=== PATIENT | female | born 1965 | race African-American/Black ===

== ENCOUNTER 2017-03-13 11:11 | Emergency (ER) | payer OTHER ==
[2017-03-13 11:25] VITALS: BP 125/81; PULSE 65; TEMP 97.6; BMI 32.5
--- NOTE | 2017-03-13 13:21 | PDOC ---
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 has had excessive sneezing and runny nose recently however no trauma, and no history of epistaxis since her visit to see Dr. Noyola last year. had cauterization done at that time. 03/13/17 13:21 Past History - Travel Traveled outside of the country in the last 30 days: No Close contact w/someone who was outside of country & ill: No - Past Medical History Allergies/Adverse Reactions: Allergies Allergy/AdvReac Type Severity Reaction Status Date / Time Penicillins Allergy Verified 03/13/17 11:22 Home Medications: Ambulatory Orders NK [No Known Home Medication] 03/13/17 Thyroid Disease: Yes - Psycho/Social/Smoking Cessation Hx Anxiety: No Suicidal Ideation: No Smoking History: Never smoked Have you smoked in the past 12 months: No Information on smoking cessation initiated: No Hx Alcohol Use: No Drug/Substance Use Hx: No Substance Use Type: None Review of Systems - Review of Systems Able to Perform ROS?: Yes Is the patient limited Maltese proficient: Yes Constitutional: Yes: See HPI. No: Symptoms Reported HEENTM: Yes: Symptoms Reported, See HPI, Nose Congestion, Nose Bleeding. No: Difficulty Swallowing Respiratory: No: Symptoms reported Integumentary: Yes: See HPI. No: Symptoms Reported All Other Systems: Reviewed and Negative *Physical Exam - Vital Signs Last Vital Signs Temp Pulse Resp BP Pulse Ox 97.6 F 65 18 125/81 100 03/13/17 11:22 03/13/17 11:22 03/13/17 11:22 03/13/17 11:22 03/13/17 11:22 - Physical Exam General Appearance: Yes: Nourished, Appropriately Dressed. No: Apparent Distress HEENT: positive: [place], TMs Normal, Pharynx Normal, Other (noted signs of superficial vessels to anterior aspect of left nostril, no active bleeding noted , no noted bleeding in posterior pharynx.) Neck: positive: Supple. negative: Lymphadenopathy (R), Lymphadenopathy (L) Respiratory/Chest: positive: Lungs Clear, Normal Breath Sounds Gastrointestinal/Abdominal: positive: Soft. 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 Given instruction to stasis bleeding reoccurs, and encouraged to follow-up with Dr. Noyola for reevaluation and possible cauterization as necessary *DC/Admit/Observation/Transfer Diagnosis at time of Disposition: Anterior epistaxis - Discharge Dispostion Disposition: HOME Condition at time of disposition: Stable Admit: No - Referrals Referrals: Bill Noyola MD [Staff Physician] - - Patient Instructions Printed Discharge Instructions: DI for Nosebleed Additional Instructions: Rest, drink lots of fluids: Teas, water, soups Saltwater gargles. Consider humidifier in room at night Steamy showers/seem to face break up mucus Avoid contact with allergens, exposure to pollens, close windows on a windy day Lots of handwashing and good hygiene Continue [id number] medications for symptomatic relief- may use allergic eyedrops for itching I Continue antihistamines daily until pollen season is over; Zyrtec, Claritin, Jessica during the daytime and Benadryl at nighttime as will make sleepy Tylenol or Motrin for fever and pain If nosebleed reoccurs, hold pressure on both nostrils for 10 solid minutes as demonstrated. If bleeding continues repeat for 10-15 more minutes, if nosebleed does not stop then come to emergency department or see specialist for follow-up. Followup with private physician in one to 2 days as needed Consider following up with an acquisition consultant/c.o.d. biller for skin testing and possible allergy shots Return to emergency department for worsened symptoms, fevers, dehydration - Post Discharge Activity Work/School Note: Back to Work
== END 2017-03-13 13:26 | disposition home or self-care (01) ==
LOC: JERFT 11:11
DX: R04.0 Epistaxis (principal)
CPT/HCPCS: 99281-25

== ENCOUNTER 2017-05-16 14:11 | Emergency (ER) | payer OTHER ==
[2017-05-16 14:17] VITALS: BP 142/80; PULSE 70; TEMP 98; BMI 31.8
--- NOTE | 2017-05-16 16:27 | PDOC ---
History of Present Illness - General Chief Complaint: Injury Stated Complaint: FELL ON RIGHT KNEE JOB INJURY Time Seen by Provider: 05/16/17 15:18 - History of Present Illness Initial Comments: 05/16/17 16:22 CHIEF COMPLAINT: knee pain HISTORY OF PRESENT ILLNESS: 52 yo F with hx of hypothyroidism presents to [facility] with R knee pain. Patient states she was working when she slipped on a wet surface and landed on her R knee. She states she is able to walk and does not need pain medicine at this time. PAST MEDICAL HISTORY: hypothyroidims FAMILY HISTORY: Denies SOCIAL HISTORY: Denies tobacco, alcohol, illicit drug use. SURGICAL HISTORY: tubal ligation 20 years ago ALLERGIES: PCN REVIEW OF SYSTEMS Musculoskeletal: R knee pain. PHYSICAL EXAM General Appearance: Well-appearing, appropriately dressed. HEENT: EOMI, PERRLA. Neck: Supple. Trachea midline. No tenderness, rigidity, carotid bruit, stridor , lymphadenopathy, or thyromegaly. Respiratory/Chest: Lungs CTAB. Cardiovascular: RRR. S1, S2. Musculoskeletal/Extremities: Patient is fully ambulatory. Normal inspection. FROM of all extremities, normal capillary refill. Pelvis Stable. No CVA tenderness. No tenderness to extremities, pedal edema, swelling, erythema or deformity. Integumentary: Appropriate color, dry, warm. 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 Fully oriented, alert. Appropriate mood/affect. Motor strength 5/5. No appreciable EOM palsy, facial droop or sensory deficit. 05/16/17 16:30 Past History - Past Medical History Allergies/Adverse Reactions: Allergies Allergy/AdvReac Type Severity Reaction Status Date / Time Penicillins Allergy Verified 05/16/17 14:17 Home Medications: Ambulatory Orders Ibuprofen [Motrin -] 600 mg PO TID #21 tablet 05/16/17 Thyroid Disease: Yes - Psycho/Social/Smoking Cessation Hx Anxiety: No Suicidal Ideation: No Smoking History: Never smoked Have you smoked in the past 12 months: No Information on smoking cessation initiated: No Hx Alcohol Use: No Drug/Substance Use Hx: No Substance Use Type: None *Physical Exam - Vital Signs Last Vital Signs Temp Pulse Resp BP Pulse Ox 98 F 70 18 142/80 98 05/16/17 14:14 05/16/17 14:14 05/16/17 14:14 05/16/17 14:14 05/16/17 14:14 ED Treatment Course - RADIOLOGY Radiology Studies Ordered: Category Date Time Status KNEE 3 POS-RIGHT [RAD] Stat Radiology 05/16/17 15:42 Ordered Medical Decision Making - Medical Decision Making 05/16/17 16:27 52 yo F with hx of hypothyroidism presents to [facility] with R knee pain. -R knee x-ray X-ray negative for fracture or dislocation. Patient is fully ambulatory with full ROM to R knee. Patient refuses pain medication at this time. -Knee immobilizer, sendy bandage. Motrin 600 mg TID, rx sent to pharm. Advised patient to take medication as prescribed and follow up with orthopedics if pain persists past 3-4 days. Advised patient of signs and symptoms for return to ED. Patient verbalized understanding and agrees to plan. *DC/Admit/Observation/Transfer Diagnosis at time of Disposition: Knee pain Qualifiers: Chronicity: acute Laterality: right Qualified Code(s): M25.561 - Pain in right knee - Discharge Dispostion Disposition: HOME Condition at time of disposition: Stable Admit: No - Prescriptions Prescriptions: Ibuprofen [Motrin -] 600 mg PO TID #21 tablet - Referrals Referrals: Matthew Ramachandran MD [Primary Care Provider] - Walker Siddiqi MD [Staff Physician] - - Patient Instructions Printed Discharge Instructions: DI for Knee Pain, How to Use a Knee Immobilizer , How To Perform RICE (Rest, Ice, Compress, Elevate) Additional Instructions: Please take medication as directed. As discussed, if your pain continues past 3 -4 days, please follow up with the orthopedic doctor for further evaluation. If you experience inability to walk, worsening pain, loss of sensation/numbness/ tingling to your leg, please return to the ER.
== END 2017-05-16 16:44 | disposition home or self-care (01) ==
LOC: JERFT 14:11
PROC: 2W3LXYZ Immobilization of Right Lower Extremity using Other Device (ICD-10-PCS; principal; 2017-05-16)
DX: S89.81XA Other specified injuries of right lower leg, initial encounter (principal); W01.0XXA Fall on same level from slipping, tripping and stumbling without subsequent striking against object, initial encounter; Y93.89 Activity, other specified; Y92.238 Other place in hospital as the place of occurrence of the external cause; Y99.0 Civilian activity done for income or pay
CPT/HCPCS: 73562-TC-RT; 99281-25